=== PATIENT | female | born 1980 | race Caucasian/White ===

== ENCOUNTER 2025-08-19 19:32 | Emergency (ER) | payer BC, SELFPAY ==
--- OUTSIDE RECORDS SUMMARY | 2025-08-19 19:34 | XMS_ITS | Clinical Summary ---
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 Gender Identity Not on file Sexual Orientation Not on file Plan of Treatment Health Maintenance Due Date Last Done Comments DTAP/TDAP/TD VACCINES (1 - Tdap) 1998 HEPATITIS B VACCINES (1 of 3 - 19+ 3-dose series) 1998 HPV/Cotest (21-29) 2000 CERVICAL CANCER SCREENING 2009 HPV/Cotest (30-65) 2009 PAP SMEAR 2009 COLORECTAL SCREENING 2024 Colorectal Cancer Screening 2024 FIT-DNA Q 3 years 2024 FIT/FOBT Q 1 year 2024 Flex Sig/CT Colonography Q 5 years 2024 BREAST CANCER SCREENING 07/13/2024 07/13/2023 INFLUENZA VACCINE (#1) 2025 HPV VACCINES Aged Out No longer eligi ble based on patient's age to complete this topic Procedures Procedure Name Priority Date/Time Associated Diagnosis Comments MAMMO 3D AYAN SCREEN BILAT W OR WO CAD Routine 07/13/2023 4:00 PM CDT Visit for screening mammogram from Last 3 Months or Most Recently Relevant to Health Maintenance Results * MAMMO SCRN BILAT 3D AYAN W OR WO CAD (07/13/2023 4:00 PM CDT) Anatomical Region Laterality Modality Breast Bilateral Mammography 07/13/2023 4:00 PM CDT Narrative 07/13/2023 4:05 PM CDT EXAM: MAMMO SCRN BILAT 3D AYAN W OR WO CAD DATE: 07/13/2023 HISTORY: Visit for screening mammogram COMPARISON: None as this is a baseline exam DENSITY: Scattered fibroglandular densities. FINDINGS: Bilateral screening mammograms with tomosynthesis were performed. Computer assisted detection was utilized. A 7.5 mm nodular mass is noted in the right upper outer breast 1 cm deep to the nipple. Although it is likely a lymph node given what appears to be a low-attenuation, recommend further evaluation with ultrasound for confirmation. No dominant mass, architectural distortion, nipple retraction, skin thickening, or suspicious calcifications are seen on the left. ASSESSMENT: 1. Probable right breast lymph node. Correlation with ultrasound is recommended. 2. BIRADS Category 0: Incomplete - Needs additional imaging evaluation. Digital technology was employed plus computer-aided detection software was utilized in interpretation of these images. us External Provider [facility] MAMMO ORDERABLES Final R esult from Last 3 Months or Most Recently Relevant to Health Maintenance [place] [address] [address] [address] [place]ORE [id number]
--- OUTSIDE RECORDS SUMMARY | 2025-08-19 19:34 | XMS_ITS | Clinical Summary ---
Author Organization [facility] Address [address] [place] [id number] Care Team Providers Care Enamel Finisher Name Role Phone Claus Calderon MD, Ras Primary Care Provider Unavail able Allergies No known active allergies Medications No known medications Social History Tobacco Use Types Packs/Day Years Used Date Smoking Tobacco: Every Day Cigarettes Tobacco Cessation:Ready to Q uit: Not Asked; Counseling Given: Not Answered Alcohol Use Standard Drinks/Week Comments Not Currently 0 (1 standard drink = 0.6 oz pur e alcohol) Comments Unknown Sex and Gender Information Value Date Recorded Sex Assigned at Not on file 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 Gender Identity Not on file Sexual Orientation Not on file Last Filed Vital Signs Vital Sign Reading Time Taken Comments Blood Pressure 116/59 10/07/2022 2:42 PM SORTER LUMBER STRAIGHTENER Pulse 54 10/07/2022 2:42 PM SORTER LUMBER STRAIGHTENER Temperature 36.9 C (98.5 F) 10/07/2022 12:43 PM SORTER LUMBER STRAIGHTENER Respiratory Rate 18 10/07/2022 2:42 PM SORTER LUMBER STRAIGHTENER Oxygen Saturation 99% 10/07/2022 2:42 PM SORTER LUMBER STRAIGHTENER Inhaled Oxygen Concentration - - Weight 86.6 kg (191 lb) 10/07/2022 12:43 PM SORTER LUMBER STRAIGHTENER Height 167.6 cm (5' 6) 10/07/2022 12:43 PM SORTER LUMBER STRAIGHTENER Body Mass Index 30.83 10/07/2022 12:43 PM SORTER LUMBER STRAIGHTENER Plan of Treatment Health Maintenance Due Date Last Done Comments Hepatitis C Virus (HCV) Screening 1979 Hepatitis B Immunization (1 of 3 - 19+ 3-dose series) 1998 Pap Smear 2000 Cervical Cancer Screening (CCS) 2009 HPV/Cotest 2009 Cologuard 2024 Colonoscopy 2024 Colorectal Cancer Screening 2024 Immunochemical Fecal Occult Blood 2024 Influenza Immunization (#1) 2025 SARS-COV-2 Immunization ( season) 2025 Respiratory Syncytial Virus (RSV) Immunization (Adult) (1 - 1-dose 75+ series) 2054 DTaP/Tdap/Td Immunization Discontinued 2018, 05/25/2010, 05/25/2010, Additional history exists TdaP Immunization Completed 02/08/2019, 05/25/2010 Human Papillomavirus (HPV) Immunization Aged Out No longer eligible based on patient's age to complete this topic Meningococcal Immunization (ACWY) Aged Out No longer eligible based on patient's age to complete this topic Pneumococcal Immunization Combined Aged Out No longer eligible based on patient's age to complete this topic Rotavirus Immunization Aged Out No lo nger eligible based on patient's age to complete this topic Care Teams Enamel Finisher Relationship Specialty Start Date End Date Ras Devlin MD PCP - General Neurological Restorative 07/07/22
--- OUTSIDE RECORDS SUMMARY | 2025-08-19 19:34 | XMS_ITS | Clinical Summary ---
Author Organization [facility] Address [address] [place] [id number] Care Team Providers Care Cordwainer Name Role Phone Marley Patterson [employer]CTOR [employer] Primary Care Provider [phone]- [phone] Encounters Date Type Department Care Team Description 06/12/2025 8:19 AM CDT - 06/12/2025 11:59 PM CDT Hospital Encounter [facility] Mammography [address] [place] [address] Marley Patterson, INSTRUCTOR SUBSTITUTE COSMETOLOGY Discharge Disposition: Home or Self Care (Routine Discharge) 06/12/2025 8:17 AM CDT - 06/12/2025 8:18 AM CDT Hospital Encounter [facility] [address] [place] [address] Marley Patterson, IN[employer] Discharge Disposition: Home or Self Care (Routine Discharge) 06/12/2025 Travel 05/23/2025 George Mobile Message [employer] [facility] Health Information Management [address] [place] [id number] [facility] Provider Name Change from Last 3 Months Social History Tobacco Use Types Packs/Day Years Used Date Smoking Tobacco: Never Assessed Comments Unknown Sex and Gender Information Value Date Recorded Sex Assigned at Female 05/24/2025 9:06 AM CDT Legal Sex Female 4:09 PM CDT Gender Identity Female 05/24/2025 9:06 AM CDT Sexual Orientation Straight 05/24/2025 9: 06 AM CDT Plan of Treatment Health Maintenance Due Date Last Done Comments Cervical Cancer Screening Pa p Smear (Age 30 to 64) Every 3 Years 1979 Colorectal Cancer Screening Colonoscopy (10 Years) 1979 Annual Physical 1982 Hepatitis C 1997 Hepatitis B Vaccines (1 of 3 - 19+ 3-dose series) 1998 Cervical Cancer Screening Pa p with HPV Testing (Age 30 to 64) Every 5 Years 2009 Cervical Cancer Screening wi th HPV 2009 COVID-19 Vaccine (2 - 2024-2 6 season) 2025 06/11/2022 Influenza Adult (#1) 2025 Mammogram Screening 06/12/2027 06/12/2025, 07/13/2023 DTaP, Tdap and Td Vaccines ( 2 - Td or Tdap) 02/08/2029 02/08/2019 Hepatitis A Vaccines Aged Out No long er eligible based on patient's age to complete this topic Meningococcal B Vaccine Aged Out No l onger eligible based on patient's age to complete this topic Meningococcal Vaccine Aged Out No jason edelmira eligible based on patient's age to complete this topic Pneumococcal Vaccine: Pediatrics (0 to 5 Years) and At-Risk Patients (6 to 49 Years) Aged Out No longer eligible b ased on patient's age to complete this topic RSV Immunizations Under 20 Months Aged Out No longer eligible b ased on patient's age to complete this topic Procedures Procedure Name Priority Date/Time Associated Diagnosis Comments MG SCREENING W AYAN NOBLE DIGI Routine 06/12/2025 9:27 AM CDT Screening mammogram for breast cancer CT HEART SCREEN CALCIUM SCORE PROMO Routine 06/12/2025 8:51 AM CDT Hyperlipidemia, unspecified Family history of ischemic heart disease and other diseases of the circulatory system from Last 3 Months Results * MG SCREENING W AYAN NOBLE DIGI (06/12/2025 9:27 AM CDT) Anatomical Region Laterality Modality Breast Bilateral Mammography 06/12/2025 1:54 PM CDT Impressions 06/12/2025 1:55 PM CDT IMPRESSION: No significant interval change. No mammographic evidence of malignancy. RECOMMENDATION: Routine ScreeningBilateral OVERALL IMAGING ASSESSMENT: ACR BI-RADS 2 - BENIGN FINDING(S). Ordered By: MARLEY PATTERSON Interpreted By: Michael Loera, 06/12/2025 1:54 PM Narrative 06/12/2025 1:55 PM CDT [facility] Care [address] [place] [id number] EXAMINATION: MG SCREENING W AYAN NOBLE DIGI INDICATIONS: Screening TECHNIQUE: Digital full field CC and MLO screening mammography bilaterally to include 3-D Tomosynthesis technique. This study was read with the assistance of a computer-aided detection system. HISTORY: No reported breast complaint. No documented personal or first degree family history of breast cancer. No documented prior breast biopsy. COMPARISON: 07/13/2023 TISSUE DENSITY: There are scattered areas of fibroglandular density. FINDINGS: Stable intramammary lymph nodes. No suspicious microcalcification or mass. No developing asymmetry or architectural distortion. No axillary adenopathy. us Marley Patterson [employer] MAMMO Final Resu lt * CT HEART SCREEN CALCIUM SCORE PROMO (06/12/2025 8:51 AM CDT) Anatomical Region Laterality Modality Chest Computed Tomogra phy 06/12/2025 5:52 PM CDT Impressions 06/12/2025 5:52 PM CDT IMPRESSION: Total Cardiac Calcium Score: 0 - a negative examination. No identifiable atherosclerotic plaque. This implies a very low, generally less than 5% risk of coronary artery disease. Ordered By: MARLEY PATTERSON Interpreted By: Michael Loera, 06/12/2025 5:52 PM Narrative 06/12/2025 5:52 PM CDT [address] [address] EXAMINATION: CT HEART SCREEN CALCIUM SCORE PROMO INDICATIONS: Hyperlipidemia, unspecified, Family history of ischemic heart disease and other diseases of the circulatory system TECHNIQUE: Multislice helical CT images of the proximal coronary arteries with a computer generated calcification score. Automated exposure control was utilized for dose reduction. FINDINGS: Calcium scoring: Right Coronary: 0 Left Main: 0 Left Anterior Descendin Left Circumflex: 0 Total Score: 0 Extra coronary findings: Heart size is normal. No pericardial effusion. The aorta is normal in caliber. The central airways are patent without endobronchial lesion. No mediastinal or bulky hilar adenopathy. The visualized lungs are clear without consolidation, effusion, or suspicious pulmonary nodule. No suspicious visceral lesion, adenopathy, or ascites within visualized upper abdomen. No acute or aggressive osseous abnormality. Calcium score guidelines: Total Score* Calcium Plaque [place] *Risk *Probability of significant CAD 0 No Plaque Very Low Very unlikely 1-10 Minimal Plaque Low Unlikely 11-100 Mild Plaque Moderate Low likelihood of significant stenosis <50% 101-400 Moderate Plaque Moderately High Moderate likelihood of significant stenosis (>50%) Over 400 Extensive Plaque High High likelihood of significant stenosis (>50%) The amount of coronary artery calcification correlates with the severity of coronary atherosclerosis and the probability of future significant event. Calcification is not site specific for stenosis and does not identify non-calcified atherosclerotic plaque, but rather indicates the extent of atherosclerosis in the coronary arteries overall. The score may be used as an indicator for risk factor modification or additional cardiac testing. Significant change in calcium score over time may be indicative of subsequent disease development or useful as a benchmark to assess preventative programs. Procedure Note Michael Loera MD - 06/12/2025 [place] [address] [place] [address] EXAMINATION: CT HEART SCREEN CALCIUM SCORE PROMO INDICATIONS: Hyperlipidemia, unspecified, Family history of ischemic heartdisease and other diseases of the circulatory system TECHNIQUE: Multislice helical CT images of the proximal coronary arterieswith a computer generated calcification score. Automated exposure controlwas utilized for dose reduction. FINDINGS: Calcium scoring: Right Coronary: 0 Left Main: 0 Left Anterior Descendin Left Circumflex: 0 Total Score: 0 Extra coronary findings: Heart size is normal. No pericardial effusion. The aorta is normal in caliber. The central airways are patent without endobronchial lesion. No mediastinal or bulky hilar adenopathy. The visualized lungs are clear without consolidation, effusion, orsuspicious pulmonary nodule. No suspicious visceral lesion, adenopathy, or ascites within visualizedupper abdomen. No acute or aggressive osseous abnormality. Calcium score guidelines: Total Score* Calcium Plaque [place] *Risk *Probability ofsignificant CAD 0 No Plaque Very LowVery unlikely 1-10 Minimal Plaque LowUnlikely 11-100 Mild Plaque ModerateLow likelihood of significant stenosis <50% 101-400 Moderate Plaque Moderately HighModerate likelihood of significant stenosis (>50%) Over 400 Extensive Plaque HighHigh likelihood of significant stenosis (>50%) The amount of coronary artery calcification correlates with the severityof coronary atherosclerosis and the probability of future significantevent. Calcification is not site specific for stenosis and does not identify non- calcifiedatherosclerotic plaque, but rather indicates the extent of atherosclerosisin the coronary arteries overall. The score may be used as an indicator for risk factor modification oradditional cardiac testing. Significant change in calcium score over timemay be indicative of subsequent disease development or useful as a benchmark to assess preventativeprograms. IMPRESSION: Total Cardiac Calcium Score: 0 - a negative examination. No identifiableatherosclerotic plaque. This implies a very low, generally less than 5%risk of coronary artery disease. Ordered By: MARLEY PATTERSON Interpreted By: Michael Loera, 06/12/2025 5:52 PM Marley Patterson IN[employer] CT Final Resu lt from Last [address] [place] [id number] [facility] Care Teams Cordwainer Relationship Specialty Start Date End Date Marley Patterson, SUSANA [address] [place] [address] PCP - General 05/28/25
--- OUTSIDE RECORDS SUMMARY | 2025-08-19 19:34 | XMS_ITS | Encounter Summary ---
Author Organization [facility] Address [address] [place] [address] Care Team Providers Care Tube Carrier Name Role Phone Marley Patterson DIRECTOR OF INTEGRATED MARKETING Primary Care Provider [phone]- [phone] Encounter Details Date Type Department Care Team (Late st Contact Info) Description 05/23/2025 [employer] Message Onsite [facility] Health Information Management [address] [place] [address] Sylvia, [facility] Provider Name Change Social History Tobacco Use Types Packs/Day Years Used Date Smoking Tobacco: Never Assessed Comments Unknown Sex and Gender Information Value Date Recorded Sex Assigned at Female 05/24/2025 9:06 AM CDT Legal Sex Female 4:09 PM CDT Gender Identity Female 05/24/2025 9:06 AM CDT Sexual Orientation Straight 05/24/2025 9: 06 AM CDT documented as of this encounter Plan of Treatment Not on file documented as of this encounter Visit Diagnoses Not on filedocumented in this encounter Care Teams Tube Carrier Relationship Specialty Start Date End Date Marley Patterson, DIRECTOR OF INTEGRATED MARKETING [address] [place] [address] PCP - General 05/28/25 documented as of this encounter
--- OUTSIDE RECORDS SUMMARY | 2025-08-19 19:34 | XMS_ITS | Data Portability ---
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 Note 1 For addit ional infor kim wagner refer to http: //[facility] yesica Hernandez [facility] ics.c om/fa q/FAQ 199 (This link is being provi ded for infor chantelle ramirez/ jennifer townsend purpo ses only. ) Not Available [address], [address], 07/07/2023 09:05:03 07/06/2007/07/2023 RETIC ULOCY TE COUNT reticulocyte count, automated 1.3 % normal Not Available [address], [address], 07/07/2023 08:12:37 07/06/2007/07/2023 RETIC ULOCY TE COUNT reticulocyte , absolute 64775 cells /uL 92300- [address] normal Not Available [address], [address], 07/07/2023 08:12:37 07/06/2007/07/2023 CBC (H/H, RBC, INDIC ES, WBC, PLT) white blood cell count 7.0 thous and/u L 3.8-10 .8 normal Not Available [facility] [address], [address], 07/07/2023 07:44:35 07/06/2007/07/2023 CBC (H/H, RBC, INDIC ES, WBC, PLT) red blood cell count 4.41 neha on/uL 3.80-5 .10 normal Not Available [address], [address], 07/07/2023 07:44:35 07/06/2007/07/2023 CBC (H/H, RBC, INDIC ES, WBC, PLT) hemoglobin 13.4 g/dL 11.7-1 5.5 normal Not Available [address], [address], 07/07/2023 07:44:35 07/06/2007/07/2023 CBC (H/H, RBC, INDIC ES, WBC, PLT) hematocrit 38.2 % 35.0-4 5.0 normal Not Available [address], [address], 07/07/2023 07:44:35 07/06/2007/07/2023 CBC (H/H, RBC, INDIC ES, WBC, PLT) MCV 86.6 fL 80.0-1 00.0 normal Not Available [address], [address], 07/07/2023 07:44:35 07/06/2007/07/2023 CBC (H/H, RBC, INDIC ES, WBC, PLT) MCH 30.4 pg 27.0-3 3.0 normal Not Available [address], [address], 07/07/2023 07:44:35 07/06/2007/07/2023 CBC (H/H, RBC, INDIC ES, WBC, PLT) MCHC 35.1 g/dL 32.0-3 6.0 normal Not Available [address], [address], 07/07/2023 07:44:35 07/06/2007/07/2023 CBC (H/H, RBC, INDIC ES, WBC, PLT) RDW 12.4 % 11.0-1 5.0 normal Not Available [address], [address], 07/07/2023 07:44:35 07/06/2007/07/2023 CBC (H/H, RBC, INDIC ES, WBC, PLT) platelet count 319 thous and/u L 140-40 0 normal Not Available [address], [address], 07/07/2023 07:44:35 07/06/2007/07/2023 CBC (H/H, RBC, INDIC ES, WBC, PLT) MPV 10.3 fL 7.5-12 .5 normal Not Available [address], [address], 07/07/2023 07:44:35 07/06/2007/07/2023 IRON AND TOTAL IRON SAMRA NG CAPAC ITY iron, total 34 mcg/d L 40-190 low Not Available [address], [address], 07/07/2023 11:36:38 07/06/2007/07/2023 IRON AND TOTAL IRON SAMRA NG CAPAC ITY iron binding capacity 322 mcg/d L_(ca lc) 250-45 0 normal Not Available [address], [address], 07/07/2023 11:36:38 07/06/2007/07/2023 IRON AND TOTAL IRON SAMRA NG CAPAC ITY % saturation 11 %_(ca lc) 16-45 low Not Available [address], [address], 07/07/2023 11:36:38 07/06/20 23 07/07/2023 CRYSTAL TIN ferritin 98 NG/mL 16-232 normal Not Available [address] [address] [place], [address], 07/07/2023 09:05:05 07/06/20 23 07/07/2023 VITAM IN B12 vitamin B12 451 pg/mL 200-11 00 normal Not Available [address] [address] [place], [address], 07/07/2023 09:05:06 07/06/20 23 07/07/2023 FOLAT E, SERUM folate, serum >24.0 NG/mL normal Refer ence Range Low: <3.4 Borde rline : 3.4-5 .4 Rachel l: >5.4 Not Available [address] [place], [address], 07/07/2023 09:05:07 07/06/2007/07/2023 HEPAT ITIS PANEL , GENER AL hepatitis A Ab, total NON-RE ACTIVE non-re active normal For addit ional infor kim wagner refer to http: //[facility] yesica smith ics.c om/fa q/FAQ (This link is being provi ded for puja ramirez/ jennifer lopezo ses only. ) Not Available [address] [place], [address], 07/07/2023 10:39:42 07/06/2007/07/2023 HEPAT ITIS PANEL , GENER AL hepatitis B surface antibody ql NON-RE ACTIVE non-re active normal Not Available [address] [address] [place], [address], 07/07/2023 10:39:42 07/06/20 23 07/07/2023 HEPAT ITIS PANEL , GENER AL hepatitis B surface antigen NON-RE ACTIVE non-re active normal For addit ional infor kim wagner refer to http: //[facility] stdia gnost ics.c om/fa q/FAQ 202 (This link is being provi ded for infor matio nal/ educa oralia l purpo ses only. ) Not Available [facility] [address], [address], 07/07/2023 10:39:42 07/06/20 23 07/07/2023 HEPAT ITIS PANEL , GENER AL hepatitis B core Ab total NON-RE ACTIVE non-re active normal For addit ional [facility], kim e refer to http: //[facility] stdia gnost ics.c om/fa q/FAQ 202 (This link is being provi ded for infor matio nal/ educa oralia l purpo ses only. ) Not Available [facility] [address], [address], 07/07/2023 10:39:42 07/06/20 23 07/07/2023 HEPAT ITIS PANEL , GENER AL hepatitis C antibody NON-RE ACTIVE non-re active normal HCV antib jean claude was non-r eacti ve. There is no labor atory evide nce of HCV infec tion. In most cases , no furth er actio n is requi red. Howev er, if recen t HCV expos ure is suspe cted, a test for HCV RNA (test code 69125 ) is sugge sted. For addit [facility]ast [facility] lisaesther alvarez e refer to http: //[facility] stdia gnost ics.c om/fa q/FAQ 22v1 (This link is being provi ded for infor matio nal/ educa oralia l purpo ses only. ) Not Available [facility] [address], [address], 07/07/2023 10:39:42 07/06/20 23 07/07/2023 THYRO ID PANEL WITH TSH T3 uptake 26 % 22-35 normal Not Available [facility] [address] [address] [place], [address], 07/07/2023 11:36:41 07/06/20 23 07/07/2023 THYRO ID PANEL WITH TSH T4 (thyroxine), total 7.4 mcg/d L 5.1-11 .9 normal Not Available [address], [address], 07/07/2023 11:36:41 07/06/20 23 07/07/2023 THYRO ID PANEL WITH TSH free T4 index (T7) 1.9 1.4-3. 8 normal Not Available [address], [address], 07/07/2023 11:36:41 07/06/20 23 07/07/2023 THYRO ID PANEL WITH TSH TSH 1.16 mIU/L normal Refer ence Range > or = 20 Years 0.40- 4.50 Pregn blayne Range s First trime ster 0.26- 2.66 Secon d trime ster 0.55- 2.73 Third trime ster 0.43- 2.91 Not Available [address], [address], 07/07/2023 11:36:41 11/07/19 25 11/10/2024 LIPID PANEL W/ TRIGL YCERI TONIO/H DL-C cholesterol, total 266 mg/dL <200 high Not Available [address], [address], 11/11/2024 00:17:02 11/07/1911/10/2024 LIPID PANEL W/ TRIGL YCERI TONIO/H DL-C HDL cholesterol 58 mg/dL >49 Not Available [facility] [address], [address], 11/11/2024 00:17:02 11/07/19 25 11/10/2024 LIPID PANEL W/ TRIGL YCERI TONIO/H DL-C triglyceride s 189 mg/dL <150 high Not Available [address] [place], [address], 11/11/2024 00:17:02 11/07/1911/10/2024 LIPID PANEL W/ TRIGL YCERI TONIO/H DL-C LDL cholesterol 174 mg/dL _(joseph c) <100 high Puhong able range <100 mg/dL for prima ry preve ntion ; <70 mg/dL for patie nts with CHD or diabe tic patie nts with >= 2 CHD risk facto rs. LDL-C is now calcu lated using the Shelly n-Hop kins calcu latio n, which is a valid ated novel metho d provi ding vick r accur acy than the Fried jessie equat ion in the estim ation of LDL-C . Shelly abraham SS et al. SORAYA. 2013; 310(1 9): 2061- 2068 (http ://ed ati on.IG [employer]uit[employer] bryannaICVRx. Idea.me/f aq/FA Q164) Not Available [facility] [address], [address], 11/11/2024 00:17:02 11/07/1911/10/2024 LIPID PANEL W/ TRIGL YCERI TONIO/H DL-C chol/HDL C 4.6 calc <5.0 Not Available [address], [address], 11/11/2024 00:17:02 11/07/1911/10/2024 LIPID PANEL W/ TRIGL YCERI TONIO/H DL-C non HDL cholesterol 208 mg/dL _(joseph c) <130 high Not Available [facility] [address], [address], 11/11/2024 00:17:02 11/07/1911/10/2024 LIPID PANEL W/ TRIGL YCERI TONIO/H DL-C TG/HDL C 3.3 calc <2.0 high Not Available [facility] [address], [address], 11/11/2024 00:17:02 07/13/2007/13/2023 XR, lumbo sacra l spine , 2 or 3 view No observ ation record ed. [facility] [address] [place] [address], [address], 07/15/2023 14:40:46 07/13/2007/13/2023 MAMMO , scree oral, bilat eral No observ ation record ed. [email or web address] [facility] [address] [facility], [place], [address], 07/15/2023 14:41:08 07/13/2007/13/2023 XR, hip + pelvi s, unila teral , 2 or 3 view No observ ation record ed. [facility] [address] [place] [address], [address], 07/15/2023 14:40:46 08/03/2008/03/2023 US, breas t, unila teral No observ ation record ed. [email or web address] [facility] [address] [place] [address], [address], 08/19/2023 17:12:13 08/23/2008/10/2023 watch pat* No observ ation record ed. [email or web address] [facility] [address], [place], [address], 08/27/2023 17:23:52 Result Notes None recorded. Problems Name Problem SNOMED Code Status Onset Date Resolution Date Notes Provider Name and Address Organization Details Recorded Time Candidia sis of mouth 51604312 Completed 202207/06/2023 TITUS COHN NP [address] [place], [address] , [place] [facility] 15:43:36 Snoring 78948954 Active 2022 TITUS COHN NP [address] [place], [address] , [facility] - [facility] 3 16:05:33 Low back pain 122478369 Active 2022 TITUS COHN NP [address] [facility], [place], [address] , [facility] - [facility] 3 16:14:54 Pain of right hip joint 39356057098 9102 Active 2022 TITUS COHN NP [address] [facility], [place], [address] , [facility] - [facility] 3 16:15:10 Skin lesion 23305161 Active 2022 dermafib anne-marie TITUS COHN NP [address] [facility], [place], [address] , [facility] 3 14:38:57 Loss of hair 464070316 Active 2022 TITUS COHN NP [address] [facility], [place], [address] , [facility] - [facility] 3 16:32:46 Vitamin D deficien cy 27208266 Active 2022 TITUS COHN NP [address] [place], [address] , [facility] 3 21:42:41 Iron deficien cy anemia 90919817 Active 2022 TITUS COHN NP [address] [place], [address] , [facility] - [facility] 3 21:43:03 Hyperlip idemia 15700233 Active 2022 TITUS COHN NP [address] [place], [address] , [facility] 3 21:45:12 Muscle twitch 52237023 [place] 2022 [place] [address] [place], [place] [address], [place], [address] , [facility] 3 14:26:02 Osteoart hritis 330113042 Active 2022 TITUS COHN NP [address] [facility], [place], [address] , [facility] 3 14:38:06 Disorder of menstrua tion 470814121 Active 2023 TITUS COHN NP [address] [facility], [place], [address] , [facility] 4 15:29:45 Pain of multiple joints 82718611 Active 2023 TITUS COHN NP [address] [facility], [place], [address] , [facility] 4 15:33:00 Itching of ear 015511554 Active 2023 TITUS COHN NP [address] [facility], [place], [address] , [facility] 4 15:46:58 Problem Notes None recorded. Procedures Surgical History Date Name Laterality Status Provider Name and Address Organization Details Recorded Time 07/06/20 24 Blood Draw completed Alberto Iglesias [facility] 07/06/2024 16:06:58 07/06/20 23 Blood Draw completed Andree Watkins [facility] 07/06/2023 16:38:05 08/11/20 20 Date of Last Pap Smear completed Not Available Health Note 07/04/2024 10:14:37 04/10/20 19 Colonoscopy with biopsy completed Not Available Health Note 07/04/2023 18:49:30 04/10/20 18 Exploration of abdomen completed Not Available Health Note 07/04/2023 18:49:30 04/10/20 16 Appendectomy completed Not Available Health Note 07/04/20 23 18:49:30 Imaging Results None recorded. Procedure Notes None recorded. Medical Equipment None Reported. Allergies No known drug allergies Medications Name Sig Start Date Stop Date Status Note LastModified by Organization Details LastModified Time nystatin 100,000 unit/mL oral suspensio n SHAKE LIQUID AND TAKE 5 ML BY MOUTH FOUR TIMES DAILY 07/04 completed Not Available Not Available Not Available hydrocort isone-jabari tic acid 1 %-2 % ear drops INSTILL 2 DROPS TO AFFECTED EAR FOUR TIMES DAILY 11/23 completed Not Available Not Available Not Available rosuvasta tin 10 mg tablet Take 1 tablet every day by oral route for 90 days. 2024 active Not Available Not Available Not Avai lable cholecalc iferol (vitamin D3) 1,250 mcg (50,000 unit) capsule Take 1 capsule every week by oral route. 2023 active Not Available Not Available Not Avai lable FeroSul 325 mg (65 mg iron) tablet TAKE 1 TABLET BY MOUTH EVERY DAY active Not Available Not Available No t Available magnesium gluconate 27.5 mg magnesium (500 mg) tablet Take 1 tablet every day by oral route. 07/06 completed HN: Patient reports no longer taking Not Available Not Available Not Available Vitals Date Recorded Body height Provider Name an d Address Organization Details Last Updated DateTime 07/06/2023 164 cm TITUS COHN, SUSANA [address] [place], [address], [facility] 07/06/2023 15:49:00 Date Recorded Body weight Body mass index (BMI) Body height Body temperature Respiratory rate Oxygen saturation Oxygen saturation in Arterial blood by Pulse oximetry Heart rate Systolic And Diastolic Provider Name and Address Organization Details Last Updated DateTime 3 97046.1 7 g 35.9 kg/m2 164 cm 98.4 [degF] 16 /min 98 % 98 % 69 /min 114/74 mm[Hg] Andere Watknis [facility] 3 16:47:32 Date Recorded Body height Body mass index (BMI) Body weight Body temperature Heart rate Oxygen saturation Oxygen saturation in Arterial blood by Pulse oximetry Systolic And Diastolic Provider Name and Address Organization Details Last Updated DateTime 4 161.92 cm 34.8 kg/m2 18354.7 8 g 97.9 [degF] 75 /min 98 % 98 % 111/75 mm[Hg] Alberto Iglesias [facility] 15:02:55 Social History Question Answer Notes LastModified by [employer] Details LastModified Time Tobacco Smoking Status Never Smoker Not Available Health Note 07/04/2024 10:14:36 What Type Of Diet Are You Following? REGULAR [email or web address] Information not available 07/04/2024 How Many Times Per Week Do You Exercise? 5-7 Times Per Week [email or web address] Information not available 07/04/2024 How Many Children Do You Have? 3 [email or web address] Information not available 07/04/2024 What Is Your Relationship Status? Single [email or web address] Information not available 07/04/2024 Are You Sexually Active? No [email or web address] Information not available 07/04/2024 Have You Recently Traveled Abroad? No [email or web address] Information not available 07/04/2024 Do You Have Any Future Plans To Get ? No, I Don't Want To Become [email or web address] Information not available 07/04/2024 Sex: Female Functional Status Question Answer Note LastModified by [employer] Details LastModified Time How many times per week do you consume alcohol? 1-2 times per week [email or web address] Information not available 07/04/2024 Do you use any illicit or recreational drugs? No [email or web address] Information not available 07/04/2024 Do you or have you ever used any other forms of tobacco or nicotine? No [email or web address] Information not available 07/04/2024 What is your level of alcohol consumption? Occasional [email or web address] Information not available 07/04/2024 What is your status? Not [email or web address] Information no t available 07/04/2024 What is your exercise level? Heavy [email or web address] Information not available 07/04/2024 Mental Status None recorded. Family History Relationship Description Onset Age of this Age Resolved Age Notes LastModified by Organization Details LastModified Time Father No current problems or disability [email or web address] Not available 05/26 16:03:07 Father Hypertensive disorder [email or web address] Not available 2022 18:49:28 Mother No current problems or disability Not available 05/26 16:03:07 Mother Family history of stroke [id number] Not available 2022 18:49:28 Brother Hypertensive disorder [id number] Not available 2022 18:49:28 Unspecified Relation Family history of stroke [id number] Not available 2023 10:14:34 Medical History Condition Response ADD/ADHD N Heart Disease N Cancer N Thyroid Problems N Stroke N Hypertension N Depression N COPD N Asthma N Gynecological History Statement/Question Response If Post Menopausal, Age at Menopause 37 HPV Vaccine Y Date of Last Pap Smear 08/11/2020 History of abnormal pap smears Y Obstetrics History GPAL:G 0 P 0 0 0 0 Immunizations Vaccine Type Date Status Note Provider Nam e and Address Organization Details Recorded Time SARS-COV-2 (COVID-19) vaccine, UNSPECIFIED 2 completed TITUS COHN NP [address] [place], [address], [facility] 07/06/2023 15:46:32 Past Encounters Encounter ID Performer Location Encounter Start Date Encounter Closed Date Diagnosis/Indication Diagnosis SNOMED-CT Code Diagnosis ICD10 Code Diagnosis IMO Codes Diagnosis Note [id number] RANDALL GLASGOW DO [facility] [address] [place] [address] 05/26/2023 15:58:21 05/26/2023 16:09:57 Candidiasis of mouth 20528441 B37.0 Hydration. Obesity 787170490 E66.9 Diet and exercise discussed. [id number] Matt Arce MD [facility] [address] [place] [address] 07/06/2023 15:39:55 07/06/2023 17:13:39 Adult health examination 915620956 Z00.01 Thyroid di sorder screening 771169919 Z13.29 Diabetes m ellitus screening 070440886 Z13.1 Hyperlipid emia screening 070896640 Z13.220 Body mass index 30+ - obesity 416405181 Z68.35 Snoring 91585115 R06.83 Low back pain 907246043 M54.50 Pain of ri ght hip joint 7956822010 84998 M25.551 Skin lesion 18667140 L98 .9 I am requesting the following virtual specialist consult at this time. Specialty or Multiple Specialtie s Requested: dermatolog y Chief Compliant: left lower back skin lesion Clinical Questions and Supporting Details to send to specialist (s): left lower back skin lesion been on back for years. unsure if growing or not. would like to know if she needs to worry about it. Loss of hair 734636614 L 65.9 [id number] Matt Arce MD [facility] [address] [place] [address] 07/06/2024 14:34:35 07/06/2024 16:10:21 Adult health examination 890933189 Z00.01 Thyroid di sorder screening 471333190 Z13.29 Diabetes m ellitus screening 264504213 Z13.1 Hyperlipid emia screening 742831633 Z13.220 Vitamin D deficiency 347 [address]29 E55.9 Pain of mu ltiple joints 66408230 M25.50 Screening for malignant neoplasm of breast 534836839 Z12.31 Itching of ear 366069790 L29.8 Health Concerns Section Related Observation LastModified by Organization Detai ls LastModified Time None Recorded Concern Status LastModified by Organization Details LastModified Time None Recorded Advance Directives Directive None Recorded Payers Insurance Date Sequence Insurance Name Policy Number Policy Nelson Covered Member ID Nelson Member ID Guarantor Name 05/28/2023 1 *SELF PAY* Me mallory Gasca 07/06/2023 *SELF PAY* Me mallory Gasca 07/06/2024 1 UMR [id number] Bee Gasca [id number] Bee Gasca 07/19/2024 1 [place] [id number] Bee Gasca [id number] Bee Gasca 07/06/2024 *SELF PAY* Al mallory Gasca Notes Date Note Type Note Provider Name and Address Organization Details Recorded Time 05/26/2023 text/html Sore ThroatRepor cecelia by PatientSore throatfor 3 daysno painmore scratchywhite spotsno lymph nodes no fever or chillsno nausea or vomiting or diarrheano abdominal pain no cp/sobno headache/dizziness/pa lpitation Has been vaccinated and boosted with covid 19. 12 points ROS is neg.ROS as noted in the HPI Randall king, [employer] 05/26/2023 16:09:50 07/06/2023 text/html Annual WellnessReported by PatientSocial/Behavio ral HistoryFor diet and nutrition, patient reportshealthy diet. For fracture risk, patient reportsno history of fractures,no recent explained fracture,no sudden unexplained fractures, andno previous musculoskeletal injuries. For physical activity, patient reportsexercises on a regular basis,recent increase in physical activity, andgood physical condition. For additional lifestyle factors, patient reportsno tobacco use,no alcohol intake, andstopped drinking alcohol.Mental Status:For depression risk, patient reportsnever feels sad, empty, or tearful,no loss of interest in activities,no significant changes in weight,no sleep disturbances or insomnia,no agitation,no loss of energy,no feelings of worthlessness or guilt,no thoughts of suicide,no history of depression, andno history of mood disorders.Functional AbilityFor hearing, patient reportsno loss of hearing. For vision, patient reportsno vision problems. Menopause:yes, began [id number] old TITUS COHN NP [address] [place], [address], [facility] 07/06/2023 17:05:37 07/06/2024 text/html ROS as noted in the HPI Bee Luong [id number] presents to the clinic via private vehicle for annual exam. Patient denies chest pain, shortness of breath, funny heartbeats, dizziness, nausea, vomiting, or diarrhea. Patient denies sore throat Patient denies cough. Patient denies difficulty urinating. Patient denies muscular pain. Patient denies testicular pain or swelling. Patient denies anxiety or depression. Patient denies suicidal or homicidal ideation. Patient denies any skin concerns.c/o left ear pain (loss of hearing), snoring, joint pain ROS: General: No: chills, fever, night sweats, significant weight gain, significant weight loss. GI: No: abdominal pain, change in appetite, constipation, diarrhea, nausea, vomiting. Ophtho: No: discharge from eyes, discomfort, dry eyes, vision change. Ent: Yes: loss of hearing, snoring. No: ear pain, frequent nosebleeds, sinus problems, sore throat. Respiratory: No: cough, shortness of breath, wheezing. Cardiac: No: ankle swelling, chest pain, palpitations. Hem: No: excessive bruising, swollen glands. Musculoskeletal: Yes: joint pain. No: back pain, muscle pain. Psych: No: anxiety, depression, feeling unsafe in a relationship, memory loss. Neuro: No: dizziness, headaches, numbness. Endo: No: cold intolerance, fatigue, loss of hair from head or body. Immuno: No: frequent sneezing, hives, itching. Skin: No: abnormal mole, breast lump, growths / lesions, rashes. Inactive Medications: - cholecalciferol (vitamin d3) 1,250 mcg (50,000 unit) capsule - ferrous sulfate 325 mg (65 mg iron) tablet - magnesium gluconate 27.5 mg magnesium (500 mg) tablet - rosuvastatin 10 mg tablet Past Medical History: Past Surgical History: Colonoscopy (camera from below into colon), Abdominal surgery, Appendix removal, Family History: No family history. Social History: Smoking status: Never smoker Alcohol Consumption: Occasional Screening / Questionnaire: PHQ9: Score: 0 Minimal Depression 0-4 0: Little interest or pleasure in doing things? (Not at all) 0: Feeling down, depressed, or hopeless? (Not at all) 0: Trouble falling or staying asleep, or sleeping too much? (Not at all) 0: Feeling tired or having little energy? (Not at all) 0: Poor appetite or overeating? (Not at all) 0: Feeling bad about yourself -- or that you are a failure or have let yourself or your family down? (Not at all) 0: Trouble concentrating on things, such as reading the newspaper or watching television? (Not at all) 0: Moving or speaking so slowly that other people could have noticed? Or so fidgety or restless that you have been moving a lot more than usual? (Not at all) 0: Thoughts that you would be better off or thoughts of hurting yourself in some way? (Not at all) If you checked off any problems, how difficult have these problems made it for you to do your work, take care of things at home, or get along with other people? (Not difficult at all) TITUS COHN NP [address], [place], [address], [facility] 07/13/2024 16:39:04 OBGyn Episode No OBEpisode recorded.
--- OUTSIDE RECORDS SUMMARY | 2025-08-19 19:34 | XMS_ITS | Encounter Summary ---
Author Organization [facility] Address [address] [place]: Epic Prelude ADT [place] [address] Care Team Providers Care Transplant Nurse Practitioner Name Role Phone Unavailable Primary Care Provider Unavailabl e Encounter Details Date Type Department Care Team (Late st Contact Info) Description 08/03/1995 Outpatient Historical Michael Harrington MD NO ADDRESS ON FILE Social History Tobacco Use Types Packs/Day Years Used Date Smoking Tobacco: Never Assessed Comments Unknown Sex and Gender Information Value Date Recorded Sex Assigned at Not on file Legal Sex Female [address] [employer] Gender Identity Not on file Sexual Orientation Not on file documented as of this encounter Plan of Treatment Not on file documented as of this encounter Visit Diagnoses Not on filedocumented in this encounter
[2025-08-19 19:37] VITALS: BP 113/81; PULSE 57; RESP 18; TEMP 37.1; O2SAT 99
--- NOTE | 2025-08-19 20:03 | ED.DENTAL ---
HPI - Dental/Oral General Chief complaint: Dental/Oral Stated complaint: Toothache x 1 week Time Seen by Provider: 08/19/25 19:36 Source: patient Mode of arrival: ambulatory Limitations: no limitations History of Present Illness HPI Narrative: This is a 45-year-old female that presents to the emergency department for toothache. Ongoing over the last week. Denies fevers. MD Complaint: tooth pain Location: Tooth # (2) Related Data Home Medications ?Medication ?Instructions ?Recorded ?Confirmed ?Last Taken ?Type omega-3 fatty acids-fish oil 300 2 cap PO 04/11/25 05/23/25 Unknown History mg-500 mg capsule (Fish Oil) Testosterone and Etrodial cream vaginal 05/23/25 05/23/25 Unknown History 20mg/2mg chlorella PO 05/23/25 05/23/25 Unknown History cholecalciferol (vitamin D3) 1,250 PO 05/23/25 05/23/25 Unknown History mcg (50,000 unit) capsule ferrous sulfate 325 mg (65 mg mg PO 05/23/25 05/23/25 Unknown History iron) tablet (FeroSul) lions dasha PO 05/23/25 05/23/25 Unknown History magnsium glycinate PO 05/23/25 05/23/25 Unknown History progesterone 55 mg PO 05/23/25 05/23/25 Unknown History Allergies Allergy/AdvReac Type Severity Reaction Status Date / Time No Known Allergies Allergy Verified 08/19/25 19:32 Review of Systems Review of Systems: All systems reviewed & are unremarkable except as noted in HPI and below PMFSH Past Medical History Medical History Vitamin D deficiency Hyperlipemia Surgical History Surgical History History of surgery on arm History of ankle surgery H/O elbow surgery H/O tubal ligation History of hysterectomy Hx of appendectomy Family History Family History Father Hyperlipidemia Grandparent Cerebrovascular accident Mother Anemia Social History Social History Alcohol intake: current Drinks per week: 4 Alcohol use details: mixed drinks - socially Substance use: never Exam Narrative: GENERAL: Well-appearing, well-nourished, and in no acute distress. HEAD: Normocephalic, atraumatic. EYES: EOMI. ENT: Nares clear, no rhinorrhea or epistaxis. Mucous membranes moist. Oropharynx without tonsillar hypertrophy exudate or other lesions. Tooth #2 tender to palpation, without surrounding edema or fluctuance to suggest abscess NECK: Supple. No adenopathy or masses. EXTREMITIES: Normal range of motion. No edema. SKIN: Warm, dry, no rash. NEURO: No focal deficits. Alert and oriented x3. PSYCH: Normal mood and affect Course Vital Signs Vital signs: Vital Signs Temperature 98.8 F 08/19/25 19:37 Pulse Rate 57 L 08/19/25 19:37 Respiratory Rate 18 08/19/25 19:37 Blood Pressure 113/81 08/19/25 19:37 Pulse Oximetry 99 08/19/25 19:37 Temperature 98.8 F 08/19/25 19:37 Pulse Rate 57 L 08/19/25 19:37 Respiratory Rate 18 08/19/25 19:37 Blood Pressure 113/81 08/19/25 19:37 Pulse Oximetry 99 08/19/25 19:37 MDM - Dental/Oral MDM Narrative Medical decision making narrative: Patient presents to the ER for toothache. She is afebrile and nontoxic appearing. No abscess on exam. Will be started on oral antibiotics. Instructed to follow-up with a dentist Differential Diagnosis Differential diagnosis: Likely dental caries, toothache and dental abscess Critical Care Time Critical Care Time Critical Care Time: No Discharge Plan Discharge Clinical Impression: Toothache Patient Disposition: Home Condition: Stable Instructions: Antibiotic Form, Toothache (ED) Additional Instructions: Return to the Emergency Department if you experience fever >101, increasing swelling and redness of your tooth, or any other symptoms that are concerning to you Take antibiotic as prescribed. Tylenol or Ibuprofen as needed for pain. Follow up with your dentist Patient Language: Slovak Prescriptions: New amoxicillin-pot clavulanate 875-125 mg tablet 1 tablet PO Q12H 7 Days Qty: 14 0RF No Action Fish Oil 300-500 mg capsule 2 cap PO ondansetron 4 mg tablet,disintegrating 4 mg PO Q8H PRN (Reason: nausea and vomiting) Qty: 20 1RF ferrous sulfate [FeroSul] 325 mg (65 mg iron) tablet PO cholecalciferol (vitamin D3) 1,250 mcg (50,000 unit) capsule PO magnsium glycinate PO Testosterone and Etrodial cream 20mg/2mg vaginal progesterone 55 mg PO chlorella PO Rx Instructions: 3 grams lions dasha PO Rx Instructions: 1 gram Zepbound 2.5 mg/0.5 mL solution See Rx Instructions .ROUTE .COMPLEX Qty: 2 0RF Dose Instruction: INJECT 0.5 ML (2.5 MG) UNDER THE SKIN ONCE WEEKLY (0.5ML= 50 UNITS) Rx Instructions: INJECT 0.5 ML (2.5 MG) UNDER THE SKIN ONCE WEEKLY (0.5ML= 50 UNITS) Follow-up/Referrals: Marley Patterson APRN, [employer] [Primary Care Provider, Family Practice]
[2025-08-19 20:14] VITALS: BP 115/73; PULSE 54; RESP 18; TEMP 36.8; O2SAT 98
== END 2025-08-19 20:15 | disposition home or self-care (01) ==
LOC: ANHED 20:09
PROVIDERS: Emergency Provider Physician Assistant; PCP Nurse Practitioner Family
DX: K08.89 Other specified disorders of teeth and supporting structures (principal); E78.5 Hyperlipidemia, unspecified; E55.9 Vitamin D deficiency, unspecified; Z90.710 Acquired absence of both cervix and uterus
CPT/HCPCS: 99283